=== PATIENT | male | born 1995 ===

== ENCOUNTER → 2021-11-12 | Outpatient (REF) | payer OTHER ==
[2021-11-12 11:35] LABS: SEMEN APPEARANCE OPAQUE (OPAQUE); SEMEN VOLUME 4.4 ml (2.0-5.0)
[2021-11-12 11:37] LABS: SEMEN VISCOSITY LIQUID (LIQUID); SPERM CONCENTRATION 78.7 M/ml (>=15.0); WBC CONCENTRATION <=1 M/ml (<=1 M/ml)
== END ==
LOC: M LAB REF 10:46
PROVIDERS: ATTEND Physician Assistant
DX: N46.9 Male infertility, unspecified (principal)